=== PATIENT | female | born 1965 | race Caucasian/White ===

== ENCOUNTER 2018-11-11 09:00 | Outpatient (CLI) | payer BC ==
--- NOTE | 2018-11-11 10:35 | CT ---
CT of the abdomen and pelvis with and without IV contrast INDICATION: Uterine mass TECHNIQUE: Noncontrast CT of the abdomen and pelvis was performed. Postcontrast images were obtained in the nephrographic phase and delayed phase. Axial and coronal reformatted images were constructed from the raw data. FINDINGS: ABDOMEN: Liver: No focal hepatic lesion. Pancreas: Normal. Gallbladder: Normal. Adrenal glands: Normal appearing. Kidneys: Small subcentimeter cyst involving the left kidney. The right kidney is normal appearing. Spleen: Normal. Retroperitoneum: There are mild vascular calcifications involving the abdominal aorta. No lymphadenop athy is evident. Pelvis: Bowel: No acute abnormality. Renal collecting system and bladder: No intraluminal filling defect or gross urothelial lesion is travis ntified. Reproductive structures: There is a large hypodense mass involving the left aspect of the uterine bod y most suspicious for a large degenerated intramural fibroid. This measures 13.1 x 11.8 x 14 cm. The fibroid was partially visualized on a comparison CTA of the abdomen dated 05/08/2014 from [facility]. At that time the fibroid was not degenerated. The adnexa aren't is not well seen. Rectum and perirectal soft tissues: Unremarkable. Osseous structures: No acute osseous abnormality is demonstrated. There is worsening Modic endplate d egenerative change at L2-3. There is scattered degenerative and osteoarthritic change present. There are laminectomy changes at L2-3. IMPRESSION: 1. Large hypodense intramural mass involving the left aspect of the uterine body is suspicious for a large degenerated intramural fibroid. MRI of the pelvis with and without contrast may be helpful for improved characterization of the pelvic structures. The adnexa were not well seen on the current examination. 2. Small subcentimeter left renal cyst. No gross urothelial lesion identified. 3. Worsening Modic endplate degenerative change at L2-3.
[2018-11-11] MEDS ORDERED: Iopamidol 370 76% 100 ML VIAL ONE (17:05)
== END 2018-11-11 09:01 | disposition home or self-care (01) ==
LOC: CT 09:00
PROVIDERS: ATTEND Student in an Organized Health Care Education/Training Program
DX: D39.0 Neoplasm of uncertain behavior of uterus (principal); N85.8 Other specified noninflammatory disorders of uterus; N28.1 Cyst of kidney, acquired; M47.816 Spondylosis without myelopathy or radiculopathy, lumbar region
CPT/HCPCS: 74178; 86304; Q9967

== ENCOUNTER 2021-03-16 15:00 | Outpatient (CLI) | payer BC | END 2021-03-16 15:01 | disposition home or self-care (01) | LOC: BICRAD 15:00 | PROVIDERS: ATTEND Student in an Organized Health Care Education/Training Program | DX: Z08 Encounter for follow-up examination after completed treatment for malignant neoplasm (principal); Z85.42 Personal history of malignant neoplasm of other parts of uterus | CPT/HCPCS: 71046 ==

== ENCOUNTER 2023-05-17 09:55 | Outpatient (CLI) | payer BC | END 2023-05-17 09:56 | disposition home or self-care (01) | LOC: BICRAD 09:55 | PROVIDERS: ATTEND Student in an Organized Health Care Education/Training Program | DX: Z08 Encounter for follow-up examination after completed treatment for malignant neoplasm (principal); Z85.42 Personal history of malignant neoplasm of other parts of uterus | CPT/HCPCS: 71046 ==

== ENCOUNTER 2024-07-11 08:42 | Outpatient (CLI) | payer BC | END 2024-07-11 08:43 | disposition home or self-care (01) | LOC: BICRAD 08:42 | PROVIDERS: ATTEND Internal Medicine | DX: M54.50 Low back pain, unspecified (principal) | CPT/HCPCS: 72220 ==

== ENCOUNTER 2024-08-07 08:10 | Outpatient (CLI) | payer BC | END 2024-08-07 08:11 | disposition home or self-care (01) | LOC: BICMAMMO 08:10 | PROVIDERS: ATTEND Plastic Surgery | DX: N63.20 Unspecified lump in the left breast, unspecified quadrant (principal); T85.43XA Leakage of breast prosthesis and implant, initial encounter; Z85.3 Personal history of malignant neoplasm of breast; Z90.13 Acquired absence of bilateral breasts and nipples | CPT/HCPCS: 77066; G0279 ==